=== PATIENT | female | born 1970 | race Caucasian/White ===

== ENCOUNTER 2019-03-31 15:38 | Emergency (ER) | payer BC ==
--- OUTSIDE RECORDS SUMMARY | 2019-03-31 15:57 | XMS REPORT | Continuity of Care Document ---
:1970 External Reference #:[id number] Author Name Alber Guillaume M.D. Address 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 Onset: 10/07/2014 Optic neuritis Fabiano Denis O.D. Onset: 03/06/2014 Plantar fascial fibromatosis Onset: 10/19/2016 Relapsing remitting multiple sclerosis Zaheer Bear MD Onset: 03/17/2014 Tobacco user Onset: 09/10/2014 Gastroesophageal reflux disease Onset: 09/10/2014 Disturbance in sleep behavior Onset: 09/10/2014 Obesity Onset: 10/29/2014 Obstructive sleep apnea syndrome Onset: 10/29/2014 Radial styloid tenosynovitis Onset: 10/12/2016 Social History Type Date Description Comments Sex Unknown ETOH Use Denies alcohol use Tobacco Use Start: Unknown Light tobacco smoker (10 or fewer cigarettes/day) Smoking Status Reviewed: 03/31/19 Light tobacco smoker (10 or fewer cigarettes/day) Allergies, Adverse Reactions, Alerts Active Allergies Reaction Severity Comments Date Sulfa Antibiotics 03/06/2014 Trazodone 11/12/2015 Percocet 02/26/2017 Medications Active Medications SIG Qnty Indications Ordering Provider Date Zaheer Enamorado MD 10/27/2016 100mg/10ML Solution Hydroxyzine HCL 1 by mouth every 120tabs Zaheer Bear MD 04/25/2015 25mg 6 hours as Tablets needed itching Ondansetron 1 three times a 60tabs Zaheer Bear MD 04/19/2015 4mg Tablets day as needed Dispers for nausea Vitamin D3 1 by mouth every Unknown 2014 5000Unit day Capsules Pantoprazole Sodium Unknown 40mg Solution Rec Hydrocodone-Acetamino Take 1 Tablet Unknown phen Every 6 Hours as 5-325mg Tablets Needed Gabapentin Take One Capsule Unknown 300mg 3 Times A Day Capsules Biotin 2 tab day Unknown 5000mcg Capsules Miralax daily as needed Unknown 3350NF Powder Rizatriptan Benzoate Hemanth Andino, ICE SKATER 10mg Tablets Dispers Immunizations CPT Code Status Date Vaccine Lot # [id number] Given 09/10/2014 Influenza Vaccine (Fluvirin) 3 Years Of Age Or Older Vital Signs Date Vital Result Comment 03/31/2019 11:39am Intraocular Pressure Right Eye 16 mmHg Intraocular Pressure Left Eye 16 mmHg 04/09/2018 2:52pm Intraocular Pressure Right Eye 15 mmHg Intraocular Pressure Left Eye 15 mmHg Results Description No Information Available Procedures Date Code Description Status 03/31/2019 93631 Oct, Optic Nerve Completed 03/31/2019 98910 Visual Field Exam Extended, Unilateral Or Bilateral Completed 03/31/2019 96833 Eye Exam Est Intermediate Completed Medical Devices Description No Information Available Encounters Description No Information Available Assessments Date Code Description Provider 03/31/2019 G35 Multiple sclerosis Alber Guillaume M.D. Plan of Treatment 03/31/2019 - Alber Guillaume M.D.G35 Multiple sclerosisFollow up:full Dr Berry 1-2 mos Functional Status Description No Information Available Mental Status Description No Information Available Referrals Description No Information Available
[2019-03-31] MEDS ORDERED: methylPREDNISolone 125 MG* 2 ML VIAL IV ONE ×2 (17:46→20:49)
[2019-03-31 17:51] LABS: ABS Eosinophils 0.3 10^3/ul (0-0.6); ABS Lymphocytes 3.1 10^3/ul (1.0-4.8); ABS Monocytes 0.8 10^3/ul (0-0.8); ABS Neutrophils 6.2 10^3/ul (1.5-7.7); Eosinophil % 2.4 %; Hematocrit 39 % (35-47); Hemoglobin 13.3 g/dL (12.0-16.0); Lymphocyte % 30.3 %; Mean Corpuscular HGB Conc 34 g/dL (31-36); Mean Corpuscular Hemoglobin 30 pg (27-31); Mean Corpuscular Volume 87 fL (80-97); Mean Platelet Volume 7.8 fL (7.4-10.4); Platelet Count 382 10^3/uL (150-450); Red Blood Count 4.46 10^6 /uL (3.70-4.87); Red Cell Distribution Width 13 % (10-15); White Blood Count 10.4 10^3/uL (3.5-10.8)
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
[2019-03-31 18:03] LABS: Albumin 4.4 g/dL (3.2-5.2); Calcium 9.2 mg/dL (8.6-10.3); Potassium 3.9 mmol/L (3.5-5.0); Total Bilirubin 0.2 mg/dL (0.2-1.0)
[2019-03-31 18:09] LABS: Albumin/Globulin Ratio 1.8 (1-3); BUN/Creatinine Ratio 25.4 (8-20); EGFR African American 113.2 (>60); EGFR Non-African American 93.6 (>60); Globulin 2.4 g/dL (2-4); Total Protein 6.8 g/dL (6.4-8.9)
[2019-03-31 18:59] LABS: TSH (Thyroid Stimulating Horm) 1.58 mcIU/mL (0.34-5.60)
[2019-03-31] MEDS ORDERED: Gadoteridol* (CONTRAST) 279.3 MG/ML 10 ML IV ONE (19:08)
--- NOTE | 2019-03-31 19:20 | ED ---
Progress - Progress Note Progress Note: Pt is a signout from Dr. Zamora at 1900 on 03/31/19 pending MRI. - Results/Orders Results/Orders: Brain/Orbital MRI shows: 1. Subtle findings of possible early bilateral optic neuritis associated with patient's multiple sclerosis. 2. White matter changes of known multiple sclerosis with no findings of active demyelination. ED physician has reviewed this report. Course/Dx - Course Course Of Treatment: Pt is a signout from Dr. Zamora at 1900 on 03/31/19 pending MRI. Brain/Orbital MRI shows: 1. Subtle findings of possible early bilateral optic neuritis associated with patient's multiple sclerosis. 2. White matter changes of known multiple sclerosis with no findings of active demyelination. I spoke with Dr. Schmidt at 2048 about the findings who recommends following up outpatient to receive infusions for the optic neuritis. She can be d/c'ed with dx of optic neuritis and multiple sclerosis. - Diagnoses Provider Diagnoses: Optic neuritis, Multiple sclerosis Discharge ED - Sign-Out/Discharge Documenting (check all that apply): Patient Departure, Receiving Sign-Out Receiving patient FROM: Pascual Zamora - Discharge Plan Condition: Stable Disposition: HOME Patient Education Materials: Optic Neuritis (ED) Referrals: Peña Fields MD [Medical Doctor] - Additional Instructions: Dr. Schmidt will set up the remaining solumedrol infusions you will need over the next 48 hours. - Billing Disposition and Condition Condition: STABLE Disposition: Home - Attestation Statements Document Initiated by Pawelibe: Yes Documenting Scribe: Sussy Martinez Provider For Whom Sadi is Documenting (Include Credential): Roberto Larson MD. Scribe Attestation: Sussy Greenwood, scribed for Roberto Larson MD. on 04/01/19 at 0524. Scribe Documentation Reviewed: Yes Provider Attestation: The documentation as recorded by the Sussy gaspar accurately reflects the service I personally performed and the decisions made by , Roberto Larson MD. Status of Scribe Document: Viewed
[2019-03-31] MEDS ORDERED: METHYLPREDNISOLONE SOD SUCC IVPB ONE (22:00)
[2019-03-31] MEDS ORDERED: NS 0.9% IVPB ONE (22:00)
[2019-03-31 22:40] VITALS: BP 134/72
== END 2019-03-31 20:30 | disposition home or self-care (01) ==
LOC: ED 15:38
DX: H53.8 Other visual disturbances (principal); H57.10 Ocular pain, unspecified eye; H46.9 Unspecified optic neuritis; R53.83 Other fatigue; G35 Multiple sclerosis; E78.00 Pure hypercholesterolemia, unspecified; K21.9 Gastro-esophageal reflux disease without esophagitis; Z88.2 Allergy status to sulfonamides; F17.210 Nicotine dependence, cigarettes, uncomplicated
CPT/HCPCS: 36415; 70543; 80053; 83605; 83735; 84443; 85025; 93005; 96361; 96374; 99283; A9579; J2930

== ENCOUNTER 2019-04-11 09:15 | Emergency (ER) | payer BC ==
[2019-04-11] MEDS ORDERED: Aspirin 81 mg CHEW TAB* 81 MG TAB.CHEW PO ONE (09:24)
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
[2019-04-11 09:43] LABS: ABS Basophils 0.3 10^3/ul (0-0.2); ABS Eosinophils 0.1 10^3/ul (0-0.6); ABS Lymphocytes 3.2 10^3/ul (1.0-4.8); ABS Monocytes 1.4 10^3/ul (0-0.8); ABS Neutrophils 15.6 10^3/ul (1.5-7.7); Eosinophil % 0.3 %; Hematocrit 38 % (35-47); Hemoglobin 12.5 g/dL (12.0-16.0); Lymphocyte % 15.4 %; Mean Corpuscular HGB Conc 33 g/dL (31-36); Mean Corpuscular Hemoglobin 29 pg (27-31); Mean Corpuscular Volume 89 fL (80-97); Mean Platelet Volume 7.5 fL (7.4-10.4); Platelet Count 355 10^3/uL (150-450); Red Blood Count 4.24 10^6 /uL (3.70-4.87); Red Cell Distribution Width 13 % (10-15); White Blood Count 20.6 10^3/uL (3.5-10.8)
[2019-04-11 09:52] LABS: Activated Partial Thrombo Time 28.1 seconds (26.0-38.0); INR 0.91 (0.82-1.09)
[2019-04-11 10:04] LABS: Albumin 4.2 g/dL (3.2-5.2); Albumin/Globulin Ratio 1.8 (1-3); BUN/Creatinine Ratio 19.4 (8-20); Calcium 9.2 mg/dL (8.6-10.3); EGFR African American 104.2 (>60); EGFR Non-African American 86.1 (>60); Globulin 2.3 g/dL (2-4); Magnesium 2.2 mg/dL (1.9-2.7); Total Bilirubin 0.2 mg/dL (0.2-1.0); Total Protein 6.5 g/dL (6.4-8.9)
--- OUTSIDE RECORDS SUMMARY | 2019-04-11 10:07 | XMS REPORT | Continuity of Care Document ---
:1970 External Reference #:[id number] Author Name Zaheer Bear M.D. (transmitted by agent of provider [facility]) Address [address] [place] [address], [place] [address] Care Team Providers Name Role Phone Hemanth Andino NP - Family Care Team Information [facility] [phone] Leonardo Driver DPM - Foot Surgery Care Team Information [facility] Nithin Song MD - Ophthalmology Care Team Information [facility] Zaheer Bear MD - Neurology Care Team Information [facility] Problems Active Problems Provider Date Relapsing remitting multiple sclerosis Zaheer Bear M.D. Onset: 2013 Disturbance in sleep behavior Shameka Davis MD Onset: 09/10/2014 Gastroesophageal reflux disease Shameka Davis MD Onset: 09/10/2014 Tobacco user Shameka Davis MD Onset: 09/10/2014 Obstructive sleep apnea syndrome Shameka Davis MD Onset: 10/29/2014 Obesity Shameka Davis MD Onset: 10/29/2014 Radial styloid tenosynovitis Layo Goyal M.D. Onset: 10/12/2016 Plantar fascial fibromatosis Layo Goyal M.D. Onset: 10/19/2016 Ganglion cyst of right wrist Layo Goyal M.D. 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 5-325mg Tablets 4-6 hours as needed for pain. Cyclobenzaprine HCL 1 twice a day 60tabs Jessee Barry, 05/22/2017 10mg as needed Tablets muscle spasms Gabapentin 2 tabs po bid 630caps Jenni Soriano MD 04/28/2015 300mg Capsules and 3 tabs at bedtime Hydroxyzine HCL 1 by mouth 120tabs Zaheer Pal 04/25/2015 25mg every 6 hours Crist[facility]bal Bear Tablets as needed itching Ondansetron 1 three times a 60tabs Zaheer Pal 04/19/2015 4mg Tablets day as needed Crist[facility]bal Bear Dispers for nausea Vitamin C W/Praveena Hips 1 by mouth Unknown 2014 every day 1000mg Tablets Calcium 600+D3 800MG every day by Unknown 2014 mouth Tablets Vitamin D3 1 by mouth Unknown 2014 61871Elgs every day Capsules One A Day once daily by Unknown 2014 mouth Sertraline HCL 1 by mouth Unknown 100mg every day Tablets Rizatriptan Benzoate Take One Tablet Unknown 10mg By Mouth AT Tablets Dispers Onset Of Migraine. May Repeat In 2 Hours I Topiramate 3 po qhs Unknown 50mg Tablets Rituxan every 4months Unknown 100mg/10ML Solution Miralax daily as needed Unknown 3350NF Packet Probiotic 1 by mouth Unknown Capsules every day Biotin 2 tab day Unknown 5000mcg Capsules Vitamin B12/Calcium 1 by mouth Unknown 50MG every day 1000mcg Tablets Krill Oil 1 by mouth Unknown Capsules every day Fiber Caps 1 tab po daily Unknown Capsule Pantoprazole Sodium 1 by mouth 90tabs Unknown 40mg daily Tablets DR Tavarez Medications Solu-Medrol via iv in 100 2units Zaheer Bear, 04/01/2019 - 1000mg milliliters Cristóbal valle 04/03/2019 Solution Rec over 60 minutes, every day for 2 days Immunizations CPT Code Status Date Vaccine Lot # [id number] Given 09/10/2014 Fluvirin Im 3Yrs And Older Vital Signs Date Vital Result Comment 04/04/2019 11:17am Height 66 inches 5'6" Weight 226.00 lb BP Systolic Sitting 126 mmHg BP Diastolic Sitting 78 mmHg Respiratory Rate 16 /min BMI (Body Mass Index) 36.5 kg/m2 11/20/2018 3:50pm Height 66 inches 5'6" Weight 216.00 lb Heart Rate 68 /min BP Systolic 142 mmHg BP Diastolic 90 mmHg BMI (Body Mass Index) 34.9 kg/m2 Results Description No Information Available Procedures Date Code Description Status 10/25/2018 52045 Carpal Tunnel Release Completed 10/04/2018 59800 Nerve Conduction 03-04 Studies Completed 01/13/2013 56904572 Colonoscopy Completed Medical Devices Description No Information Available Encounters Type Date Location Provider Dx Diagnosis Office Visit 11/20/2018 [facility] Zaheer Bear, G35 Multiple sclerosis 3:45p [facility] Z79.899 Other long-term (current) drug therapy Office Visit 10/21/2018 [facility] Robert Pal R22.9 Localized 3:00p [facility] MD swelling, mass AT [place] and lump, unspecified Office Visit 10/16/2018 [facility] Goyal, G56.02 Carpal tunnel 3:00p [facility], left [place] upper limb Assessments Date Code Description Provider 04/04/2019 G35 Multiple sclerosis Zaheer Bear M.D. 04/04/2019 Z79.899 Other long-term (current) drug therapy Zhaeer Bear M.D. 04/04/2019 H46.8 Other optic neuritis Zaheer Bear M.D. 04/04/2019 G43.009 Migraine without aura, not intractable, Zaheer Bear M.D. without status migrainosus 11/20/2018 G35 Multiple sclerosis Zaheer Bear M.D. 11/20/2018 Z79.899 Other terminal gauger (current) drug therapy Zaheer Bear M.D. 11/05/2018 G56.02 Carpal tunnel syndrome, left upper limb Layo Goyal M.D. 11/05/2018 Z47.89 Encounter for other orthopedic aftercare Layo Goyal M.D. 10/25/2018 G56.02 Carpal tunnel syndrome, left upper limb Layo Goyal M.D. 10/21/2018 R22.9 Localized swelling, mass and lump, [facility] MD unspecified 10/16/2018 G56.02 Carpal tunnel syndrome, left upper limb Layo Goyal M.D. 10/04/2018 G56.02 Carpal tunnel syndrome, left upper limb Zaheer Bear M.D. Plan of Treatment Future Appointment(s):05/09/2019 10:45 am - Zaheer [facility] M.D. at [facility]/20/2019 3:45 pm - Zaheer Bear M.D. at [facility]04/04/2019 - Zaheer Bear M.D.G35 Multiple vrlxtgxrgB44.899 Other long-term (current) drug xamoxivJ06.8 Other optic neuritisFollow up:get ED report, MRI report in EMR 1 uxjzpM13.009 Migraine without aura, not intractable, without status migrainosus Functional Status Description No Information Available Mental Status Description No Information Available Referrals Description No Information Available
[2019-04-11 10:08] LABS: CKMB ng/mL 1.4 ng/mL (0.6-6.3)
[2019-04-11 10:25] LABS: Potassium 3.6 mmol/L (3.5-5.0)
[2019-04-11 10:46] LABS: TSH (Thyroid Stimulating Horm) 1.36 mcIU/mL (0.34-5.60)
[2019-04-11 13:46] LABS: Urine Appearance Cloudy; Urine Bilirubin Negative (Negative); Urine Blood Negative (Negative); Urine Color Yellow; Urine Glucose Negative (Negative); Urine Ketones Negative (Negative); Urine Nitrite Negative (Negative); Urine Protein Negative (Negative); Urine Specific Gravity 1.016 (1.010-1.030); Urine Urobilinogen Negative (Negative)
[2019-04-11 13:59] LABS: Urine Bacteria Absent (Absent); Urine Red Blood Cell 1+(3-5/hpf) (Absent); Urine Squamous Epithelial Cell Present (Absent); Urine White Blood Cell 2+(11-20/hpf) (Absent)
[2019-04-11] MEDS ORDERED: Perflutren Lipid Microsphere* 3 ML VIAL ONE ×2 (14:40→14:59)
[2019-04-11] MEDS ORDERED: Atropine SYRINGE* 0.1 MG/ML 10 ML SYRINGE (1 MG) ONE (15:04)
[2019-04-11] MEDS ORDERED: DOBUTamine 2000 MCG/ML IVPREMX 0 MG/0 ML BAG IV ONE (15:05)
[2019-04-11] MEDS ORDERED: Metoprolol Tartrate IV* 1 MG/ML 5 ML VIAL ONE (15:05)
[2019-04-11 16:10] VITALS: BP 120/93
--- NOTE | 2019-04-11 17:29 | STRESS ---
"*[facility]* [place] [address] Fax #: [phone] Stress Echocardiogram Carlin protocol Patient: Yanni Ruvalcaba : 1970 Study Date: 04/11/2019 Age: 48 Gender: F HR: 85 bpm Height: 66 in /167.6 cm BSA: 2.2 m^2 Weight: 220 lb /100 kg BMI: 35.6 kg/m^2 *Inventory Technician: * Tiesha Lipscomb [facility] *Referring Physician: * Nikolas Kern MD *Reading Physician: Nikolas Heller MD Indications: Chest Pain, unspecified. History: Multiple sclerosis. Risk factors: Current tobacco use. Conclusions Summary: Normal maximal exercise stress echocardiogram, hills treadmill score 7.5 (low risk) Study data: Stress echocardiogram Consent: The risks and benefits of the procedure, including alternatives were discussed with the patient and/or their health care sales representative womens health and written informed consent was obtained. Procedure: Initial setup: Surface ECG leads and manual cuff blood pressure measurements were monitored throughout the procedure. A baseline ECG was recorded. Treadmill exercise testing was performed using the Carlin protocol. The patient exercised for 7 min 36 sec, to protocol stage 3, to a maximal work rate of 10.1 mets. Exercise was terminated due to dyspnea and due to fatigue. The patient was positioned for image acquisition and recovery monitoring. Transthoracic stress echocardiography. Image quality was good. Images were captured at baseline and peak exercise. Intravenous contrast Definity, 6 mlswas administered. IV Access was obtained or checked for patency by Hector Romero RN. Image enhancement administered by Lindsey Thompson RN. Location: Echo laboratory. Patient status: Outpatient. Patient location: ED. Patient room number: 17. Study completion: There were no complications. Findings Baseline ECG: Normal sinus rhythm. Nonspecific ST changes. Cardiac stress table: + + +---+ + |Stage |Time into phase|HR |BP | + + +---+ + |Baseline | |85 |124/80 (95) | + + +---+ + |Stage 1 |03:00 |105|174/72 (106)| + + +---+ + |Stage 2 |03:00 |119|166/71 (103)| + + +---+ + |Stage 3 |01:36 |140| | + + +---+ + |Recovery; 1 min |01:00 |108|175/72 (106)| + + +---+ + |Recovery ; 5 min|05:00 |74 |120/70 (87) | + + +---+ + Stress results: Maximal heart rate during stress was 145 bpm (85% of maximal predicted heart rate). The maximal predicted heart rate was 171 bpm. The target heart rate was 145 bpm. The heart rate response to stress is normal. There is a normal resting blood pressure with an appropriate response to stress. Peak blood pressure achieved during test: 175/72 The rate-pressure product for the peak heart rate and blood pressure was 43084 mm Hg/min. Stress ECG: Sinus tachycardia. There was nonspecific < [address] changes. Baseline: LV size is normal. LV global systolic function is normal. Normal wall motion; no LV regional wall motion abnormalities. Peak stress: LV global systolic function is hyperdynamic. Normal wall motion; no LV regional wall motion abnormalities. Stress echo results: Sensitivity to detect ischemia reduced by quick heart rate recovery. Normal maximal exercise stress echocardiogram. Prepared and electronically signed by Nikolas Kern MD 04/11/2019 17:29"
== END 2019-04-11 16:09 | disposition home or self-care (01) ==
LOC: ED 09:15
DX: R07.9 Chest pain, unspecified (principal); E78.00 Pure hypercholesterolemia, unspecified; K21.9 Gastro-esophageal reflux disease without esophagitis; F17.210 Nicotine dependence, cigarettes, uncomplicated; Z90.710 Acquired absence of both cervix and uterus; Z88.5 Allergy status to narcotic agent; Z88.2 Allergy status to sulfonamides; Z88.8 Allergy status to other drugs, medicaments and biological substances
CPT/HCPCS: 36415; 71045; 80053; 81003; 81015; 82550; 82553; 83735; 83880; 84443; 84484; 85025; 85610; 85730; 87086; 93005; 93351; 93352; 99283; A9270-GY; C8930; J0461; J1250; J3490